=== PATIENT | male | born 1960 | race African-American/Black ===

== ENCOUNTER 2017-11-16 13:04 | Day surgery (SDC) | payer OTHER ==
[2017-11-16] MEDS ORDERED: LIDOCAINE 2% (SDV) 5 ML INJ (14:02)
[2017-11-16] MEDS ORDERED: PROPOFOL 40 ML (14:02)
== END 2017-11-16 14:53 | disposition home or self-care (01) ==
LOC: GIL 13:04
DX: D12.4 Benign neoplasm of descending colon (principal); K64.8 Other hemorrhoids; E78.00 Pure hypercholesterolemia, unspecified
CPT/HCPCS: 45380; 88305